=== PATIENT | female | born 1985 | race Two or more races ===

== ENCOUNTER 2021-07-31 14:34 | Outpatient (CLI) | payer OTHER | END 2021-07-31 16:05 | disposition home or self-care (01) | LOC: PRENATAL 14:34 | PROVIDERS: ATTEND Obstetrics & Gynecology Maternal & Fetal Medicine | DX: O35.0XX1 Maternal care for (suspected) central nervous system malformation in fetus, fetus 1 (principal); O35.3XX1 Maternal care for (suspected) damage to fetus from viral disease in mother, fetus 1; O98.512 Other viral diseases complicating pregnancy, second trimester; O09.512 Supervision of elderly primigravida, second trimester; Z36.89 Encounter for other specified antenatal screening; Z3A.20 20 weeks gestation of pregnancy ==

== ENCOUNTER 2022-07-26 10:29 | Outpatient (CLI) | payer OTHER | END 2022-07-26 11:34 | disposition home or self-care (01) | LOC: NST 10:29 | PROVIDERS: ATTEND Obstetrics & Gynecology Gynecology | DX: Z23 Encounter for immunization (principal) ==

== ENCOUNTER 2022-08-10 10:21 | Outpatient (CLI) | payer OTHER | END 2022-08-10 10:55 | disposition home or self-care (01) | LOC: NST 10:21 | PROVIDERS: ATTEND Obstetrics & Gynecology | DX: Z34.83 Encounter for supervision of other normal pregnancy, third trimester (principal) ==

== ENCOUNTER 2022-08-28 10:07 | Outpatient (CLI) | payer OTHER | END 2022-08-28 10:44 | disposition home or self-care (01) | LOC: NST 10:07 | PROVIDERS: ATTEND Obstetrics & Gynecology Maternal & Fetal Medicine | DX: Z34.83 Encounter for supervision of other normal pregnancy, third trimester (principal) ==

== ENCOUNTER 2022-10-02 09:54 | Outpatient (CLI) | payer OTHER | END 2022-10-02 10:41 | disposition home or self-care (01) | LOC: NST 09:54 | PROVIDERS: ATTEND Obstetrics & Gynecology Gynecology | DX: Z34.83 Encounter for supervision of other normal pregnancy, third trimester (principal) ==

== ENCOUNTER 2022-10-05 13:45 | Inpatient (IN) | payer OTHER ==
[~2022-10-05] VITALS: Ht 165.1 cm; Wt 67.1 kg
[2022-10-14] MEDS ORDERED: VALACYCLOVIR1000 MG PO (03:29)
[2022-10-14] MEDS ORDERED: PRENATAL TABLE1 EAC3 PO (03:29)
== END 2022-10-16 14:40 | disposition home or self-care (01) | DRG 807 ==
LOC: OB/GYN 10-14 02:38 → LDR 10-14 02:38 → OB/GYN 10-14 09:17 → LDR 10-28 13:45
PROVIDERS: ADMIT Obstetrics & Gynecology Maternal & Fetal Medicine; ATTEND Obstetrics & Gynecology Maternal & Fetal Medicine
PROC: 10E0XZZ Delivery of Products of Conception, External Approach (ICD-10-PCS; principal; 2022-10-14)
PROC: 0UQG7ZZ Repair Vagina, Via Natural or Artificial Opening (ICD-10-PCS; 2022-10-14)
PROC: 4A1HXCZ Monitoring of Products of Conception, Cardiac Rate, External Approach (ICD-10-PCS; 2022-10-14)
DX: O71.4 Obstetric high vaginal laceration alone (principal); Z37.0 Single live birth; Z3A.38 38 weeks gestation of pregnancy; Z20.822 Contact with and (suspected) exposure to COVID-19

== ENCOUNTER 2022-10-13 11:21 | Outpatient (CLI) | payer OTHER ==
[2022-10-14] MEDS ORDERED: VALACYCLOVIR1000 MG PO (03:29)
[2022-10-14] MEDS ORDERED: PRENATAL TABLE1 EAC3 PO (03:29)
== END 2022-10-13 13:32 | disposition home or self-care (01) ==
LOC: NST 11:21
PROVIDERS: ATTEND Obstetrics & Gynecology
DX: Z34.83 Encounter for supervision of other normal pregnancy, third trimester (principal)

== ENCOUNTER 2025-01-06 06:50 | Day surgery (SDC) | payer OTHER ==
[2025-01-05 11:42] LABS: INR 1.03; PARTIAL THROMBOPLASTIN TIME 27.8 SECONDS (22.0-34.0); PROTHROMBIN TIME 11.2 SECONDS (9.0-11.5)
[~2025-01-06 06:50] MED LIST: PRENATAL TABLE1 EAC3 PO; VALACYCLOVIR1000 MG PO
[2025-01-06] MEDS ORDERED: POVIDONE-IODINE 118 ML BOTT TOP ONE (15:45)
[2025-01-06] MEDS ORDERED: CEFOXITIN SODIUM 2,000 MG VIAL IV ONE (15:45)
[2025-01-06] MEDS ORDERED: PROMETHAZINE HCL 50 MG/ML AMPUL IM ONE (17:00)
[2025-01-06] MEDS ORDERED: FF) RHO(D) IMMUNE GLOBULIN (POM) IM ONE (17:00)
[2025-01-06] MEDS ORDERED: MORPHINE SULFATE 4 MG/ML VIAL IV PRN (17:00)
== END 2025-01-06 22:00 | disposition home or self-care (01) ==
LOC: CIR.AMB 06:50
PROVIDERS: ATTEND Obstetrics & Gynecology
DX: O02.1 Missed abortion (principal)